=== PATIENT | female | born 1990 | race Caucasian/White ===

== ENCOUNTER 2019-05-19 22:34 | Emergency (ER) | payer MEDICAID, SELFPAY ==
[2019-05-19 22:35] VITALS: BP 124/78; PULSE 66; RESP 18; TEMP 36.3; O2SAT 97; BMI 36.0
--- NOTE | 2019-05-19 22:57 | ED.DCSUM_ITS ---
- ER Visit Summary Date of Service: 05/19/19 Chief Complaint: Sore throat and left ear pain History of Present Illness: The patient is a 29 F who presents with a sore throat and left ear pain that has been getting worse over the past 2 weeks. Patient describes the pain as sharp. Patient is a pain is over the lower tonsillar areas bilaterally. Patient states the pain radiates to her left ear. Patient states the pain is worse with swallowing. Patient admits to fever of 100.4. Patient admits to some nausea but denies any vomiting. Patient denies any cough. Patient denies any chest pain or shortness of breath. Physical Examination: Vital signs are stable. Patient is afebrile. Patient is in no acute distress. The left tympanic membrane is mildly erythematous. The right tympanic membrane is clear. Neck is supple. Trachea is midline. There is no JVD noted. Oral mucosa is pink and moist. Oropharynx is erythematous. There is a slight exudate noted on the tonsils bilaterally. Heart was regular rate and rhythm. Lungs are clear and equal bilaterally. Cranial nerves II through XII are intact. There are no focal motor or sensory deficits noted. Emergency Department Course and Treatment: Patient was given her first dose of Zithromax here. Patient was given a prescription for Zithromax. Patient is allergic to penicillins and clindamycin. Patient was instructed to continue plenty of fluids. Patient was instructed to follow-up with her primary care physician in 5 to 7 days. Patient understood and was agreeable with the plan. All questions were answered. Disposition: Discharge home Impression: 1. Left otitis media 2. Pharyngitis This note was generated with [employer] dictation software. It may contain incorrect words, spelling, and punctuation that were not noted in review of the chart prior to signing ED Disposition - Plan for ED Patient: Disposition: Home or Assisted Living Diagnosis: Left otitis media, Pharyngitis Instructions: OTITIS MEDIA, Abx Tx (Adult), PHARYNGITIS, Strep (Presumed) Prescriptions: Azithromycin [Zithromax] 250 mg PO DAILY #4 tab Prescription Printed Referrals: [facility] Doctor,Out of [Primary Care Provider] - 5-7 Days
[2019-05-19] MEDS: Azithromycin 250 MG Tablet 500 MG PO (23:08)
[2019-05-19 23:28] VITALS: RESP 18
== END 2019-05-19 23:28 | disposition home or self-care (01) ==
LOC: ED 23:06
PROVIDERS: Emergency Provider Emergency Medicine; Family Provider Internal Medicine; PCP Internal Medicine
DX: H66.92 Otitis media, unspecified, left ear (principal); J02.9 Acute pharyngitis, unspecified; M79.7 Fibromyalgia
CPT/HCPCS: 99283

== ENCOUNTER 2019-09-05 14:13 | Emergency (ER) | payer MEDICAID, SELFPAY ==
[2019-09-05 14:13] VITALS: BP 123/99; PULSE 87; RESP 16; TEMP 36.4; O2SAT 97; BMI 33.6
--- NOTE | 2019-09-05 15:14 | ED.VISSUMM ---
- ER Visit Summary Date of Service: 09/05/19 Chief Complaint: Dizziness History of Present Illness: The patient is a 29 F who presents with dizziness that began today. Patient states the dizziness feels like the room is spinning and she is off balance. Patient states this has been waxing and waning for the past couple hours. Patient states it is worse with standing. Patient states she had one episode of vomiting. Patient states she feels shaky. Patient admits to some pressure in her ears but denies any tinnitus or hearing changes. Patient denies any visual changes. Patient denies any paresthesias or weakness. Patient denies any headaches. Physical Examination: Vital signs are stable. Patient is afebrile. Patient is in no acute distress. Pupils are equal, round, and reactive to light bilaterally. Extraocular muscles are intact. There is nystagmus with lateral gaze. Tympanic membranes are clear bilaterally. Oral mucosa is pink and moist. Oropharynx is clear. Neck is supple. Trachea is midline. There is no JVD noted. Heart was regular rate and rhythm. Lungs are clear and equal bilaterally. Abdomen is soft. Bowel sounds are normal. There is no tenderness. Cranial nerves II through XII are intact. There are no focal motor or sensory deficits noted. Extremities are intact. There is no calf tenderness or edema. Test Results: CBC and basic metabolic profile within normal limits. hCG was negative. Emergency Department Course and Treatment: Patient was given a dose of meclizine and prednisone here. Patient still had dizziness and nausea after this. Patient was given a dose of Valium and Zofran. Patient states her dizziness and nausea has improved after this but is still present. Patient was given prescriptions for Valium and Zofran. Patient was instructed to get plenty of rest and drink plenty of fluids. Patient was instructed to follow-up with her primary care physician in 3 to 5 days. Patient understood and was agreeable with the plan. All questions were answered. Disposition: Discharge home Impression: 1. Vertigo This note was generated with [employer] dictation software. It may contain incorrect words, spelling, and punctuation that were not noted in review of the chart prior to signing ED Disposition - Plan for ED Patient: Disposition: Home or Assisted Living Diagnosis: Vertigo Instructions: VERTIGO, Unspecified Prescriptions: Diazepam [Valium] 2 mg PO TID PRN PRN #10 tab PRN Reason: Vertigo Prescription Printed Ondansetron [Zofran Odt] 4 mg PO Q8H PRN PRN #10 tab PRN Reason: Nausea Prescription Printed Referrals: Joselito Daugherty MD [Primary Care Provider] - 3-5 Days
[2019-09-05] MEDS: 0.9% Normal Saline 1,000 ML 1000 ML IV (15:27)
[2019-09-05] MEDS: Meclizine HCl 25 MG Tablet PO (15:28)
[2019-09-05] MEDS: predniSONE 20 MG Tablet 40 MG PO (15:28)
[2019-09-05 15:37] LABS: Absolute Lymphocyte Count 3.01 X10^3/uL (0.83-4.51); Absolute Neutrophil Count 6.2 X10^3/uL (2.0-7.7); Basophil# 0.03 X10^3/uL; Basophil% 0.3 % (0-1); Eosinophil# 0.25 X10^3/uL; Eosinophils% 2.4 % (0-5); Hematocrit 44.7 % (37-47); Hemoglobin 14.9 g/dL (12.0-15.0); Lymphocyte # 3.01 X10^3/ul (4.0); Lymphocyte % 29.4 % (19-41); Mean Corp Hgb Conc 33.3 g/dL (32-36); Mean Corpuscular Hgb 31.4 pg (27.0-32.0); Mean Corpuscular Volume 94.3 fL (81-99); Mean Platelet Vol. 9.4 fl (6.2-12.0); Monocyte# 0.78 X10^3/uL; Monocyte% 7.6 % (0-10); NRBC Flagged by Analyzer 0 % (0-5); Neutrophil # 6.16 X10^3/uL (2.7-7.7); Neutrophil % 60.1 % (47-70); Platelet Count 334 K/mm3 (150-450); RBC Distribution Width CV 12.9 % (11.6-14.6); RBC Distribution Width SD 44.7 fl (35.1-43.9); Red Blood Count 4.74 M/mm3 (4.2-5.4); White Blood Count 10.3 K/mm3 (4.4-11.0)
[2019-09-05 15:52] LABS: Anion Gap 6 (5-15); BUN 9 mg/dL (7-18); BUN/Creat Ratio 10.4 RATIO (10-20); Calcium,Total 9.2 mg/dL (8.5-10.1); Chloride 105 mmol/L (98-107); Creatinine, Serum 0.87 mg/dL (0.55-1.02); EST Glomerular Filtration Rate 81 mL/min (>60); Est Glom Filt Rate - Afr Amer 98 mL/min (>60); Estimated Creatinine Clearance 80.91 ml/min; Glucose 103 mg/dL (74-106); Potassium 3.6 mmol/L (3.5-5.1); Sodium Level 140 mmol/L (136-145)
[2019-09-05 16:00] LABS: Internal QC Validated? YES +Cl - CLEAR BKGD; Pregnancy, Serum, hCG Quali. NEGATIVE Negative
[2019-09-05] MEDS: Ondansetron 4 MG/2 ML Vial IV (16:40)
[2019-09-05] MEDS: diazePAM 5 MG Tablet 2.5 MG PO (16:41)
[2019-09-05 17:14] VITALS: RESP 14
[2019-09-05 18:46] VITALS: RESP 16
== END 2019-09-05 18:46 | disposition home or self-care (01) ==
PROVIDERS: Emergency Provider Emergency Medicine; Family Provider Internal Medicine; PCP Internal Medicine
DX: R42 Dizziness and giddiness (principal); R11.2 Nausea with vomiting, unspecified; R06.00 Dyspnea, unspecified; M54.9 Dorsalgia, unspecified; G89.29 Other chronic pain; E03.9 Hypothyroidism, unspecified
CPT/HCPCS: 80048; 84703; 85025; 96361; 96374; 99283; J7030; A4216; J2405

== ENCOUNTER 2020-12-10 04:32 | Emergency (ER) | payer MEDICAID, SELFPAY ==
[2020-12-10 04:32] VITALS: BP 106/80; PULSE 94; RESP 23; TEMP 36.3; O2SAT 97; BMI 38.6
[2020-12-10 04:36] VITALS: BP 106/80; PULSE 94; RESP 19; TEMP 36.3; O2SAT 97
--- NOTE | 2020-12-10 04:52 | ED.RN ---
RN CALLED FOR EKG, NO OLD EKGS IN MUSE
--- NOTE | 2020-12-10 05:00 | RAD_ITS ---
STUDY: X-RAY CHEST REASON FOR EXAM: Female, 30 years old. Worsening chest pain and pressure during the past month. Shortness of breath. TECHNIQUE: AP portable chest. COMPARISON: None. FINDINGS: The lungs are clear and expanded. There is no demonstrated pleural abnormality. Normal size heart. Normal mediastinum and liban. Normal visualized pulmonary arteries. Normal visualized aortic arch and descending thoracic aorta. Normal visualized thoracic spine. Normal visualized ribs, clavicles, and shoulders. There is no demonstrated abnormality of the visualized soft tissue structures of the upper abdomen. RAD/Chest 1 View (Portable) IMPRESSION: Normal x-ray examination of the chest. Electronically Signed: Raza Cancino MD at 5:27 EST , Service support ,
--- NOTE | 2020-12-10 05:00 | EKG12_ITS ---
Test Reason : CP/SOB Blood Pressure : / mmHG Vent. Rate : 092 BPM Atrial Rate : 092 BPM P-R Int : 132 ms QRS Dur : 072 ms QT Int : 364 ms P-R-T Axes : 061 078 034 degrees QTc Int : 450 ms Normal sinus rhythm Normal ECG Confirmed by GUSTAVO LEZAMA, PHILIP ([id number]), production editor PARAS DEVRIES ([id number]) on 12/11/2020 11:14:34 AM Referred By: BB Confirmed By:PHILIP CHEN MD
--- NOTE | 2020-12-10 05:02 | ED.DCSUM_ITS ---
History of Present Illness Chief Complaint: Chest Pain Informant: Patient Onset: Weeks - multiple Activity at onset: Unknown Timing: Continuous - for at least a week Quality: Pressure Location: Substernal - sometimes radiating into mid-upper back; no other radiation Current Severity: Moderate Maximum Severity: Moderate Worsened By: Breathing, - - lying supine Relieved By: - - sitting up Associated Symptoms: Dyspnea, Cough. Negative for: Nausea, Vomiting, Diaphoresis, Fever, Lightheadedness, Acid Reflux, Palpitations Narrative: Patient presents saying that she has been having symptoms of a slight asthma exacerbation for the past several weeks or month. She has been having chest pressure off and on during this, and it has been constant for at least the past week. It seems worse when she lies down, and she noticed a sore throat for the last day or 2, and some discomfort in her upper chest with eating sometimes. She went to urgent care earlier this past day and they performed a Covid swab, which she has not had nor known contact with anybody with that that she knows of, told her that her throat looked normal, and they gave her a nebulizer machine. They were going to give her a prescription for vials of albuterol, but at the pharmacy they had a prescription for an inhaler only and she already has that. She has been using the inhaler here and there but not every day and not this past day, and it has not helped her chest pressure although it has helped her whistling. No fevers or chills or runny nose or myalgias. No GI symptoms. - Past Medical History (1) Asthma Status: Chronic (2) Dominick's thyroiditis Status: Chronic (3) Fibromyalgia Status: Chronic Past Medical History - Allergies and Home Meds Allergies/Adverse Reactions: Allergies amoxicillin Allergy (Verified 09/05/19 14:15) Hives clindamycin Allergy (Verified 09/05/19 14:15) Hives Penicillins [PCN] Allergy (Verified 09/05/19 14:15) Hives trazodone Allergy (Verified 09/05/19 14:15) Angioedema Primary Care Physician: Joselito Daugherty MD [Primary Care Provider] - Smoking Status: Never smoker Review of Systems General: Denies: Chills, Fever, Sweats Eyes: Denies: Visual changes - bilaterally, Diplopia ENT: Denies: Bilateral ear pain, Rhinorrhea, Sore throat Cardiovascular: Reports: Chest pain. Denies: Palpitations, Heart racing Respiratory: Reports: Dyspnea, Cough. Denies: Sputum, Dyspnea on exertion, Orthopnea Gastrointestinal: Denies: Abdominal pain, Nausea, Vomiting, Diarrhea, Melena, Hematochezia Genitourinary: Denies: Dysuria, Hematuria, Frequency Musculoskeletal: Reports: Back pain. Denies: Myalgias, Neck pain, Swelling, Extremity Pain Skin: Denies: Rash, Wounds Neurological: Denies: Headache, Weakness, Numbness Physical Exam Vital Signs/Narrative: Vital Signs Temp Pulse Resp BP Pulse Ox 12/10/20 04:36 97.4 F L 94 19 H 106/80 97 12/10/20 04:32 97.4 F L 94 23 H 106/80 97 Inital Vital Signs reviewed: Yes General: Well nourished, Well developed, Obese, No Acute Distress - Well- appearing Head: Normocephalic, Atraumatic Eyes: Perrl, EOMI ENT: Moist mucous membranes, No rhinorrhea Neck: Supple, Nontender Cardiovascular: Regular rate, Regular rhythm, No murmurs. Negative for: Tachycardia Respiratory: No distress - Speaking in full sentences, conversive without any distress, CTA bilaterally, Chest tenderness - Reproducing the patient's pain midsternum, - - No splinting on deep inspiration Abdomen: Soft, Nontender, Nondistended, Normal bowel sounds Back: Nontender, Normal Inspection Extremities: Nontender, No edema. Negative for: Calf Tenderness Skin: Normal color, No rash, No Trauma Neurological: Alert, Oriented x3, Cranial nerves II-XII grossly intact, Normal Strength, Normal Sensation Psychological: Normal Mood, - - Somewhat anxious Diagnostic/Tx/Re-eval Chest X-Ray - ED: 1 View, Read by ED Physician, Normal, Heart, Lungs, Mediastinum, Bony Structures, No Acute Disease Clinical Impression(s) from Imaging Studies Chest X-Ray 12/10/20 05:00 IMPRESSION: Normal x-ray examination of the chest. Electronically Signed: Raza Cancino MD at 5:27 EST , Service support , - Rhythm Strip Rhythm Strip: Sinus Rhythm Rate: 92 Ectopy: None - EKG Initial EKG Interpretation: Sinus Rhythm, No Acute Injury Pattern - Normal EKG Prior: No Prior Treatment: GI Cocktail - And albuterol treatment without significant improvement FRANCIE Risk: No Positive FRANCIE Elements Score: 0 - Medical Decision Making EKG is normal, chest x-ray is normal as well. I do not think she needs troponin, blood work, further work-up emergently. We did try an albuterol treatment and a GI cocktail, neither 1 really seem to help her pressure but the GI cocktail did resolve her throat discomfort that was mild. Patient is reassured, we can reproduce her discomfort with palpation of her sternum and parasternal areas at a certain mid sternal level, and as I discussed with her it is certainly possible this is chest wall pain related to her fibromyalgia. We will give her a dose of Toradol prior to discharge and instructions on costochondritis, certainly other intrathoracic etiologies are in the differential such as esophageal spasm, celiac disease which we discussed, and I do not think she needs to be worked up for pulmonary embolism or other cardiac disease at this time given her normal EKG. Close outpatient follow-up advised. ED Disposition - Plan for ED Patient: Disposition: Home or Assisted Living Diagnosis: Chest pain, unspecified Instructions: ED Chest Wall Pain, Costochondritis Prescriptions: Albuterol Aerosols [Ventolin Aerosols] 2.5 mg INHALATION Q4H PRN #25 vial Transmission Status: Pending to [id number] Referrals: Joselito Daugherty MD [Primary Care Provider] - 3-5 Days if not improving
[2020-12-10] MEDS: Albuterol 2.5 MG/3 ML VIAL.NEB. INHALATION (05:04)
[2020-12-10 05:05] VITALS: PULSE 61; RESP 10
[2020-12-10] MEDS: Mag Hydrox/Al Hydrox/Simeth 30 ML UDC PO (05:47)
[2020-12-10] MEDS: Ketorolac 30 MG/ML Syringe IV (06:11)
[2020-12-10 06:30] VITALS: BP 141/97; PULSE 73; RESP 18; O2SAT 99
== END 2020-12-10 06:31 | disposition home or self-care (01) ==
PROVIDERS: Emergency Provider Emergency Medicine; PCP Internal Medicine
DX: R07.89 Other chest pain (principal); J45.909 Unspecified asthma, uncomplicated; M79.7 Fibromyalgia; E06.3 Autoimmune thyroiditis; E66.9 Obesity, unspecified; Z79.51 Long term (current) use of inhaled steroids; Z79.899 Other long term (current) drug therapy
CPT/HCPCS: 71045; 93005; 94640; 96374; 99283; A4216

== ENCOUNTER 2021-08-09 18:52 | Emergency (ER) | payer MEDICAID, SELFPAY ==
[2021-08-09 18:53] VITALS: BP 153/98; PULSE 93; RESP 16; TEMP 36.9; O2SAT 98; BMI 34.3
[2021-08-09 20:09] LABS: Absolute Lymphocyte Count 3.12 X10^3/uL (0.83-4.51); Absolute Neutrophil Count 7.4 X10^3/uL (2.0-7.7); Basophil# 0.05 X10^3/uL; Basophil% 0.4 % (0-1); Eosinophil# 0.27 X10^3/uL; Eosinophils% 2.3 % (0-5); Hemoglobin 15.6 g/dL (12.0-15.0); Lymphocyte # 3.12 X10^3/ul (0.83-4.51); Lymphocyte % 26.9 % (19-41); Mean Corp Hgb Conc 32.5 g/dL (32-36); Mean Corpuscular Hgb 30.7 pg (27.0-32.0); Mean Corpuscular Volume 94.5 fL (81-99); Mean Platelet Vol. 9.6 fl (6.2-12.0); Monocyte# 0.75 X10^3/uL; Monocyte% 6.5 % (0-10); NRBC Flagged by Analyzer 0 % (0-5); Neutrophil # 7.39 X10^3/uL (2.7-7.7); Neutrophil % 63.6 % (47-70); Platelet Count 343 K/mm3 (150-450); RBC Distribution Width CV 12.6 % (11.6-14.6); RBC Distribution Width SD 43.9 fl (35.1-43.9); Red Blood Count 5.08 M/mm3 (4.2-5.4); White Blood Count 11.6 K/mm3 (4.4-11.0)
[2021-08-09 20:16] VITALS: PULSE 89; RESP 16; O2SAT 97
[2021-08-09 20:17] LABS: Internal QC Validated? YES +Cl - CLEAR BKGD
[2021-08-09 20:18] LABS: Pregnancy, Serum, hCG Quali. NEGATIVE Negative
[2021-08-09 20:21] LABS: Anion Gap 6 (5-15); BUN 7 mg/dL (7-18); BUN/Creat Ratio 8.9 RATIO (10-20); Calcium,Total 8.9 mg/dL (8.5-10.1); Chloride 106 mmol/L (98-107); Creatinine, Serum 0.78 mg/dL (0.55-1.02); EST Glomerular Filtration Rate 90 mL/min (>60); Est Glom Filt Rate - Afr Amer 108 mL/min (>60); Estimated Creatinine Clearance 88.59 ml/min; Glucose 122 mg/dL (74-106); Potassium 4.4 mmol/L (3.5-5.1); Sodium Level 139 mmol/L (136-145)
[2021-08-09 21:04] LABS: Mucous, Urine 0 SEEN /hpf (<or=2+); Red Blood Cells-Urine 0 SEEN /hpf (0-5); Squamous Epithelial Cells - UA 0 SEEN /hpf (5-10); White Blood Cells 0 SEEN /hpf (0-5)
[2021-08-09 21:10] LABS: Glucose, Dipstick Normal (Normal); Ketone-Dipstick Negative (Negative); Leukocyte Esterase-Dipstick Negative /ul (Negative); Nitrite-Dipstick Negative (Negative); Occult Blood-Urine Negative /ul (Negative); Protein-Dipstick Negative (Negative); Urine Bilirubin Dipstick Negative (Negative); Urine Urobilinogen Normal (Normal)
[2021-08-09 21:32] LABS: Color, Urine Yellow (Yellow); Urine Clarity Sl Cldy (Clear)
[2021-08-09 21:43] LABS: Bacteria RARE /hpf (None Seen); Transitional Epithelial - Ur 0-5 SEEN /hpf (0-5)
--- NOTE | 2021-08-09 21:45 | RAD_ITS ---
INDICATION: Left-sided abdominal pain EXAMINATION/TECHNIQUE: X-RAY - XR Abdomen Series W/ Chest 1 View COMPARISON: 12/10/2019 FINDINGS: --Chest: LINES/DEVICES: None. LUNGS: No consolidation, edema or effusion. No pneumothorax. MEDIASTINUM AND CARDIOVASCULAR STRUCTURES: Cardiac silhouette not enlarged. Central airways and mediastinal contour are unremarkable. BONES AND SOFT TISSUES: No acute findings. --Abdomen: BOWEL GAS PATTERN: Non-obstructive. No bowel or stomach distention. Small amount retained stool in colon. FREE AIR: None visualized. ORGANOMEGALY: Not seen. CALCIFICATIONS: No abnormal calcifications observed. BONES AND SOFT TISSUES: No acute findings. RAD/Acute Abdomen Inc Chest IMPRESSION: No acute abnormalities. Electronically Signed: Frantz Jackson MD at 22:32 EDT Tel , Service support ,
--- NOTE | 2021-08-09 21:57 | EDS_ITS ---
HPI HPI - GI History of Present Illness Chief Complaint: Abd Pain Informant: patient Abdominal Pain/Flank Pain Onset: Weeks Context: Sudden Onset Timing: Continuous Quality: Sharp Location: - (Left upper umbilicus) Current Severity: Mild Maximum Severity: Severe Worsened by: Nothing Relieved by: Nothing Nausea/Vomiting/Emesis GI Symptom: Negative for Nausea and Vomiting Diarrhea/Melena/Hematochezia GI Symptom: Negative for Diarrhea, Melena and Hematochezia Associated Symptoms Associated Symptoms: Negative for Dysuria, Frequency and Hematuria Narrative Narrative: Patient is a 31-year-old woman who was sent from urgent care because of abdominal pain for the past 2 weeks. She denies history of abdominal surgery. Her last menses was less than a month ago. She states she reports no symptoms of . She is not sexually active. She is not been compliant with her levothyroxine. She does report weight gain. She does feel slight fatigue. She denies headache, visual, ocular auditory symptoms. Denies cardiac respiratory symptoms. She denies nausea, vomiting or diarrhea. She denies dysuria, frequency, urgency or hematuria. She denies history of inflammatory bowel disorder. There is no family history of inflammatory bowel disorder. She denies blood or mucus in her stool. She denies history of renal ureterolithiasis. There is no history of trauma. Prior similar symptoms: No Recent Illness/Hospitalization: No PFSH PFSH Home Medications albuterol sulfate 2 puff IH Q4H PRN PRN 12/10/20 [History Last Taken Unknown] albuterol sulfate 2.5 mg INHALATION Q4H PRN #25 vial 12/10/20 [Rx Last Taken Unknown] levothyroxine 200 mcg PO DAILY 12/10/20 [History Last Taken Unknown] tizanidine 4 mg PO QHS PRN 12/10/20 [History Last Taken Unknown] fluticasone propionate [Flovent HFA] 1 puff INHALATION BID 08/09/21 [History L ast Taken Unknown] Allergy/AdvReac Type Severity Reaction Status Date / Time amoxicillin Allergy Hives Verified 08/09/21 18:53 clindamycin Allergy Hives Verified 08/09/21 18:53 Penicillins [PCN] Allergy Hives Verified 08/09/21 18:53 trazodone Allergy Angioedema Verified 08/09/21 18:53 Surgical History H/O total thyroidectomy Social History (Updated 08/09/21 @ 21:[address] Venkat Pearl MD) household members: none Smoking Status: Never smoker alcohol intake: current alcohol intake frequency: holidays/special occasions only substance use type: does not use ROS ROS ED Constitutional Constitutional ED: Denies chills, fever(s), subjective, sweats or weight loss ENT ENT ED: Denies ear pain or rhinorrhea Cardiovascular Cardiovascular: Denies chest pain or palpitations Respiratory/Chest Respiratory/Chest: Denies cough, dyspnea or dyspnea on exertion Gastrointestinal Gastrointestinal: Reports abdominal pain; Denies constipation, diarrhea, melena, nausea or vomiting Genitourinary Genitourinary ED: Denies dysuria, hematuria or urinary frequency Musculoskeletal Musculoskeletal: Denies arthralgias, back pain, myalgias or neck pain Integumentary Denies rash Neurologic Neurologic: Denies headache(s) or weakness Hematologic/Lymphatic Hematologic/Lymphatic: Denies easy bleeding or easy bruising EXAM Physical Exam Const Vital Signs: 08/09/21 18:53 08/09/21 20:16 08/09/21 22:45 Temperature 98.4 F Temperature Source Temporal Pulse Rate 93 89 Respiratory Rate 16 16 Blood Pressure 153/98 H 115/102 H Blood Pressure Mean 116 106 Pulse Ox 98 97 99 Oxygen Delivery Method Room Air Room Air Room Air Positive well nourished, well developed and obese General Appearance ED: well developed and NAD Nutritional Appearance: obese HEENT Reports moist mucous membranes normocephalic and atraumatic Eyes PERRL and EOMs intact bilaterally General Eye ED: Negative for pale conjunctiva or scleral icterus Neck no lymphadenopathy, supple and no JVD Resp normal respiratory effort and clear to auscultation bilaterally Cardio regular rate, regular rhythm, S1 normal heart sound, S2 normal heart sound and no murmurs GI non-distended; Negative for non-tender Auscultation: normoactive bowel sounds and hypoactive bowel sounds Palpation: soft and tender LUQ; Negative for guarding, rigid, hepatomegaly or splenomegaly Back/Spine no CVA tenderness Lumbar Spine / Lower Back: Negative for lumbar spinal tenderness Extremity full ROM General Extremety ED: Negative for edema or tenderness General Extremity: Negative for edema Neuro CN's II-XII intact bilaterally Sensorium / Orientation: alert, oriented to person, oriented to place and oriented to time Motor Exam: strength 5/5 throughout Psych mental status grossly normal and thought process normal Skin no wounds Lesions: no lesions Rashes: no rashes MDM MDM MDM Narrative Medical decision making narrative: Patient with 2 weeks of constant abdominal pain. Etiology is unknown. May represent abdominal pain of unknown etiology, irritable bowel syndrome, obstipation due to noncompliance with thyroid me dicine. Patient was informed she has to take her levothyroxine. There is stool noted on the abdominal x-ray. Otherwise her work-up was unremarkable. Lab Data Attestation: I reviewed the patient's lab results. Lab results narrative: White count is slightly elevated. There is no shift or bandemia.. Basic metabolic panels marked for glucose of 122. test is negative. Labs: Laboratory Results - last 24 hr 08/09/21 08/09/21 08/09/21 19:43 19:43 19:43 WBC 11.6 H RBC 5.08 Hgb 15.6 H Hct 48.0 H MCV 94.5 MCH 30.7 MCHC 32.5 RDW Std Deviation 43.9 RDW Coeff of Hi 12.6 Plt Count 343 MPV 9.6 Immature Gran % (Auto) 0.300 Neut % (Auto) 63.6 Lymph % (Auto) 26.9 [place] % (Auto) 6.5 Eos % (Auto) 2.3 Baso % (Auto) 0.4 Absolute Neuts (auto) 7.4 Absolute Lymphs (auto) 3.12 Nucleated RBC % 0 Sodium 139 Potassium 4.4 Chloride 106 Carbon Dioxide 27.0 Anion Gap 6 BUN 7 Creatinine 0.78 Estim Creat Clear Calc 88.59 Est GFR (MDRD) Af Amer 108 Est GFR (MDRD) Non-Af 90 BUN/Creatinine Ratio 8.9 L Glucose 122 H Calcium 8.9 TSH Serum , Qual NEGATIVE Urine Color Urine Clarity Urine pH Ur Specific [place] Urine Protein Urine Glucose (UA) Urine Ketones Urine Occult Blood Urine Nitrite Urine Bilirubin Urine Urobilinogen Ur Leukocyte Esterase Urine RBC Urine WBC Ur Squamous Epith Cells Ur Transition Epith Cell Urine Bacteria Urine Mucus 08/09/21 08/09/21 19:43 Unknown WBC RBC Hgb Hct MCV MCH MCHC RDW Std Deviation RDW Coeff of Hi Plt Count MPV Immature Gran % (Auto) Neut % (Auto) Lymph % (Auto) [place] % (Auto) Eos % (Auto) Baso % (Auto) Absolute Neuts (auto) Absolute Lymphs (auto) Nucleated RBC % Sodium Potassium Chloride Carbon Dioxide Anion Gap BUN Creatinine Estim Creat Clear Calc Est GFR (MDRD) Af Amer Est GFR (MDRD) Non-Af BUN/Creatinine Ratio Glucose Calcium TSH 7.96 H Serum , Qual Urine Color Yellow Urine Clarity Sl Cldy Urine pH 8.0 Ur Specific [place] 1.010 Urine Protein Negative Urine Glucose (UA) Normal Urine Ketones Negative Urine Occult Blood Negative Urine Nitrite Negative Urine Bilirubin Negative Urine Urobilinogen Normal Ur Leukocyte Esterase Negative Urine RBC 0 SEEN Urine WBC 0 SEEN Ur Squamous Epith Cells 0 SEEN Ur Transition Epith Cell 0-5 SEEN Urine Bacteria RARE Urine Mucus 0 SEEN Radiography Diagnostic Testing: Radiology Impression Acute Abdomen Series 08/09/21 21:45 IMPRESSION: No acute abnormalities. Electronically Signed: Frantz Jackson MD at 22:32 EDT Tel , Service support , Discharge Plan Triage Chief Complaint: Abd Pain ED Provider: Venkat Pearl Dx/Rx/DC Orders Clinical Impression: Left sided abdominal pain of unknown cause, Hypothyroidism Instructions: ED Abdominal Pain Unkn Cause Fem, ED Hypothyroidism Prescriptions: No Action tizanidine 4 MG tablet 4 mg PO QHS PRN (Reason: Pain 1-10 Or Fever) RF: 0 levothyroxine 200 MCG tablet 200 mcg PO DAILY RF: 0 albuterol sulfate 1 PUFF inhaler 2 puff IH Q4H PRN PRN (Reason: Shortness Of Breath) RF: 0 albuterol sulfate 2.5 MG/3 ML solution for nebulization 2.5 mg INHALATION Q4H PRN Qty: 25 RF: 0 Flovent HFA 220 mcg/actuation HFA aerosol inhaler 1 puff INHALATION BID RF: 0 Primary Care Provider: Joselito Daugherty Referrals: Joselito Daugherty MD [Primary Care Provider] - 1 Week if not improving Activity Restrictions/Additional Instructions: 1. Increase fiber in diet 2. You need to take your thyroid medicine daily. 3. You should follow-up with your doctor in 1 to 2 weeks to have a thyroid test performed. Disposition Disposition: Home, Self Care
[2021-08-09 22:18] LABS: Thyroid Stim Hormone (TSH) 7.96 uIU/mL (0.358-3.74)
[2021-08-09 22:45] VITALS: BP 115/102; O2SAT 99
== END 2021-08-10 00:40 | disposition home or self-care (01) ==
PROVIDERS: Emergency Provider Emergency Medicine; PCP Internal Medicine
DX: R10.9 Unspecified abdominal pain (principal); E03.9 Hypothyroidism, unspecified; E66.9 Obesity, unspecified; Z79.899 Other long term (current) drug therapy; Z79.51 Long term (current) use of inhaled steroids
CPT/HCPCS: 74022; 80048; 81001; 84443; 84703; 85025; 99284; J7030

== ENCOUNTER 2021-09-12 11:24 | Emergency (ER) | payer MEDICAID, SELFPAY ==
[2021-09-12 11:25] VITALS: BP 133/93; PULSE 70; RESP 161; TEMP 36.4; O2SAT 100; BMI 39.3
[2021-09-12 11:36] VITALS: PULSE 76; RESP 18; O2SAT 99
--- NOTE | 2021-09-12 11:36 | EKG12_ITS ---
Test Reason : Blood Pressure : / mmHG Vent. Rate : 069 BPM Atrial Rate : 069 BPM P-R Int : 140 ms QRS Dur : 078 ms QT Int : 394 ms P-R-T Axes : 029 085 063 degrees QTc Int : 422 ms Normal sinus rhythm Kristian-Septal CT, age undetermined, cannot be excluded Confirmed by GUSTAVO LEZAMA, PHILIP ([id number]), video effects editor YULIYA TERRELL ([id number]) on 09/14/2021 8:10:52 AM Referred By: WILLY Confirmed By:PHILIP CHEN MD
--- NOTE | 2021-09-12 11:36 | RAD_ITS ---
STUDY: X-RAY CHEST REASON FOR EXAM: Female, 31 years old. sob TECHNIQUE: PA and lateral views of the chest. COMPARISON: 08/09/2021 FINDINGS: The lungs are clear and expanded. There is no demonstrated pleural abnormality. Normal size heart. Normal mediastinum and liban. Normal visualized pulmonary arteries. Normal visualized aortic arch and descending thoracic aorta. Normal visualized thoracic spine. Normal visualized ribs, clavicles, and shoulders. There is no demonstrated abnormality of the visualized soft tissue structures of the upper abdomen. RAD/Chest PA and Lateral IMPRESSION: Normal x-ray examination of the chest. Electronically Signed: Simone Mann MD at 12:04 EST Tel , Service support ,
--- NOTE | 2021-09-12 11:37 | EDS_ITS ---
HPI History of Present Illness Chief Complaint: Allergic Reaction Informant: patient Onset/Context/Timing Onset: Today Context: Gradual Onset Current Severity: Mild Maximum Severity: Moderate Narrative Narrative: Patient presents secondary to have possible allergic reaction to oxycodone. She was given oxycodone secondary to severe right ear infection. She took her first dose at 348 this morning. An hour later she developed diffuse itching. She states she did not have hives. An hour following this she developed some shortness of breath and chest heaviness. She states symptoms are improving at this time but not back to baseline. She continues to have chest heaviness and feels short of breath especially with any exertion. She denies lip swelling or throat tightness, but does states she feels a slight lump in her throat. She will get this sensation frequently with her hypothyroidism. She had no difficulty speaking, controlling secretions, or swallowing. [facility] Medical History Asthma Fibromyalgia Dominick's thyroiditis Home Medications albuterol sulfate 2 puff IH Q4H PRN PRN 12/10/20 [History Last Taken Unknown] albuterol sulfate 2.5 mg INHALATION Q4H PRN #25 vial 12/10/20 [Rx Last Taken Unknown] levothyroxine 200 mcg PO DAILY 12/10/20 [History Last Taken Unknown] tizanidine 4 mg PO QHS PRN 12/10/20 [History Last Taken Unknown] fluticasone propionate [Flovent HFA] 1 puff INHALATION BID 08/09/21 [History Last Taken Unknown] azithromycin 250 mg tablet See Rx Instructions PO .COMPLEX #6 tab 09/05/21 [Rx Last Taken Unknown] zuilrvaf-uarifx-XI-thonzonm 3.3 mg-3 mg-10 mg-0.5 mg/mL ear drops,susp 4 drp OTIC (EAR) TID #10 ml 09/05/21 [Rx Last Taken Unknown] ondansetron 4 mg disintegrating tablet 4 mg PO Q8H PRN #7 tab 09/05/21 [Rx Last Taken Unknown] Allergy/AdvReac Type Severity Reaction Status Date / Time amoxicillin Allergy Hives Verified 09/12/21 11:27 clindamycin Allergy Hives Verified 09/12/21 11:27 oxycodone Allergy Chest Verified 09/12/21 11:37 tightness Penicillins [PCN] Allergy Hives Verified 09/12/21 11:27 trazodone Allergy Angioedema Verified 09/12/21 11:27 Surgical History H/O total thyroidectomy Social History household members: none Smoking Status: Never smoker alcohol intake: current alcohol intake frequency: holidays/special occasions only substance use type: does not use ROS ROS ED Constitutional Constitutional ED: Denies chills or fever(s) Eyes Eyes: Denies change in vision ENT ENT ED: Denies sore throat Cardiovascular Cardiovascular: Reports chest pain Respiratory/Chest Respiratory/Chest: Reports dyspnea; Denies cough Gastrointestinal Gastrointestinal: Denies abdominal pain, diarrhea, nausea or vomiting Genitourinary Genitourinary ED: Denies dysuria Musculoskeletal Musculoskeletal: Denies back pain Integumentary Denies rash Neurologic Neurologic: Denies headache(s) Allergic/Immunologic Allergic/Immunologic ED: Denies urticaria EXAM Physical Exam Const Vital Signs: 09/12/21 11:25 09/12/21 11:36 09/12/21 11:45 Temperature 97.6 F L Temperature Source Temporal Pulse Rate 70 76 Respiratory Rate 161 H 18 Respiratory Effort Normal Blood Pressure 133/93 H Blood Pressure Mean 106 Pulse Ox 100 99 Oxygen Delivery Method Room Air Room Air Positive well nourished and well developed General Appearance ED: well developed HEENT Reports moist mucous membranes HEENT Narrative: Posterior pharynx examination normal. Eyes PERRL and EOMs intact bilaterally Neck no lymphadenopathy and supple Chest Wall inspection of chest normal and palpation of chest normal Resp normal respiratory effort and clear to auscultation bilaterally Cardio regular rate and regular rhythm GI normal to inspection, nondistended, normoactive bowel sounds and non-tender Palpation: soft Extremity normal to inspection Neuro oriented x3 Sensorium / Orientation: alert Psych mental status grossly normal Skin no rashes or lesions noted MDM MDM MDM Narrative Medical decision making narrative: Patient was placed on digital media coordinator. EKG, chest x-ray obtained. Patient given p.o. Benadryl, prednisone, Pepcid. Radiography Chest X-Ray - ED: 2 View, Read by ED Physician, Normal, Heart, Lungs and Mediastinum Diagnostic Testing: Clinical Impression(s) from Imaging Studies Chest X-Ray 09/12/21 11:36 IMPRESSION: Normal x-ray examination of the chest. Electronically Signed: Simone Mann MD at 12:04 EST Tel , Service support , EKG Initial EKG: Attestation: I personally reviewed and interpreted this EKG as follows: Interpretation: Sinus Rhythm (Sinus at 69 with no acute ischemia.) Treatment and Re-Evaluation Comments:: On repeat evaluation patient states that she still feels some heaviness in her chest. Vital signs are normal. EKG and chest x-ray are unremarkable. Half-life of the medication is 4 hours. She presents here approximately 8 hours after the initial ingestion. I advised her that I believe she did have a reaction to the medication but then that has increased her anxiety. She will continue to monitor her symptoms and return instructions provided. She is comfortable with this plan and is agreeable with discharge Discharge Plan Triage Chief Complaint: Allergic Reaction ED Provider: Ayde Coffman Dx/Rx/DC Orders Clinical Impression: Allergic drug reaction Instructions: ED ADVERSE DRUG REACTION Allergic Prescriptions: No Action Cortisporin-TC 3.3-3-10-0.5 mg/mL drops,suspension 4 drp otic (ear) TID Qty: 10 RF: 0 azithromycin [Zithromax Z-Jluis] 250 mg tablet See Rx Instructions PO .COMPLEX Qty: 6 RF: 0 ondansetron 4 mg tablet,disintegrating 4 mg PO Q8H PRN (Reason: nausea and vomiting) Qty: 7 RF: 0 tizanidine 4 MG tablet 4 mg PO QHS PRN (Reason: Pain 1-10 Or Fever) RF: 0 levothyroxine 200 MCG tablet 200 mcg PO DAILY RF: 0 albuterol sulfate 1 PUFF inhaler 2 puff IH Q4H PRN PRN (Reason: Shortness Of Breath) RF: 0 albuterol sulfate 2.5 MG/3 ML solution for nebulization 2.5 mg INHALATION Q4H PRN Qty: 25 RF: 0 Flovent HFA 220 mcg/actuation HFA aerosol inhaler 1 puff INHALATION BID RF: 0 Primary Care Provider: Amalia,Joselito Referrals: Joselito Daugherty MD [Primary Care Provider] - As Needed Disposition Disposition: Home, Self Care
[2021-09-12] MEDS: Famotidine 20 MG Tablet 40 MG PO (11:43)
[2021-09-12] MEDS: DiphenhydrAMINE 25 MG Capsule 50 MG PO (11:43)
[2021-09-12] MEDS: predniSONE 20 MG Tablet 60 MG PO (11:43)
[2021-09-12 13:27] VITALS: BP 137/79; PULSE 71; RESP 18; O2SAT 96
== END 2021-09-12 13:28 | disposition home or self-care (01) ==
PROVIDERS: Emergency Provider Emergency Medicine; PCP Internal Medicine
DX: L29.9 Pruritus, unspecified (principal); R06.02 Shortness of breath; T40.2X5A Adverse effect of other opioids, initial encounter; J45.909 Unspecified asthma, uncomplicated; M79.7 Fibromyalgia; E06.3 Autoimmune thyroiditis; Z79.51 Long term (current) use of inhaled steroids; Z79.899 Other long term (current) drug therapy
CPT/HCPCS: 71046; 93005; 99283

== ENCOUNTER 2021-11-10 10:22 | Emergency (ER) | payer MEDICAID, SELFPAY ==
[2021-11-10 10:23] VITALS: BP 149/114; PULSE 75; RESP 18; TEMP 36.6; O2SAT 99; BMI 39.1
--- NOTE | 2021-11-10 11:13 | EDS_ITS ---
HPI History of Present Illness Chief Complaint: Fever Narrative Narrative: 31-year-old female presenting with symptoms of COVID-19. She states that she became ill about 11 days ago. She denies fever, chills, body aches. Her and her son both have the same symptoms. She states she was not able to get tested any sooner because all of the local urgent cares were full. She states today she is feeling improved but still has a tickle in her throat. She is no longer having fever or chills or body aches. She is eating and drinking normally although she does admit to a little bit of diarrhea. [facility] Medical History Asthma Fibromyalgia Dominick's thyroiditis Home Medications albuterol sulfate 2 puff IH Q4H PRN PRN 12/10/20 [History Last Taken Unknown] albuterol sulfate 2.5 mg INHALATION Q4H PRN #25 vial 12/10/20 [Rx Last Taken Unknown] levothyroxine 200 mcg PO DAILY 12/10/20 [History Last Taken Unknown] tizanidine 4 mg PO QHS PRN 12/10/20 [History Last Taken Unknown] fluticasone propionate [Flovent HFA] 1 puff INHALATION BID 08/09/21 [History Last Taken Unknown] azithromycin 250 mg tablet See Rx Instructions PO .COMPLEX #6 tab 09/05/21 [Rx Last Taken Unknown] nnvgixba-qvakrz-QG-thonzonm 3.3 mg-3 mg-10 mg-0.5 mg/mL ear drops,susp 4 drp OTIC (EAR) TID #10 ml 09/05/21 [Rx Last Taken Unknown] ondansetron 4 mg disintegrating tablet 4 mg PO Q8H PRN #7 tab 09/05/21 [Rx Last Taken Unknown] Allergy/AdvReac Type Severity Reaction Status Date / Time amoxicillin Allergy Hives Verified 11/10/21 10:26 clindamycin Allergy Hives Verified 11/10/21 10:26 oxycodone Allergy Chest Verified 11/10/21 10:26 tightness Penicillins [PCN] Allergy Hives Verified 11/10/21 10:26 trazodone Allergy Angioedema Verified 11/10/21 10:26 Surgical History H/O total thyroidectomy Social History household members: none Smoking Status: Never smoker alcohol intake: current alcohol intake frequency: holidays/special occasions only substance use type: does not use ROS ROS ED Constitutional Constitutional ED: Reports chills and fever(s) Eyes Eyes: Denies blurry vision or diplopia ENT ENT ED: Reports sore throat; Denies rhinorrhea Cardiovascular Cardiovascular: Denies chest pain or palpitations Respiratory/Chest Respiratory/Chest: Reports cough; Denies dyspnea Gastrointestinal Gastrointestinal: Reports diarrhea; Denies abdominal pain, nausea or vomiting Genitourinary Genitourinary ED: Denies dysuria or hematuria Musculoskeletal Musculoskeletal: Reports myalgias; Denies arthralgias Integumentary Denies Abrasions or rash Neurologic Neurologic: Denies headache(s) or weakness EXAM Physical Exam Const Vital Signs: 11/10/21 10:23 Temperature 98 F Temperature Source Temporal Pulse Rate 75 Respiratory Rate 18 Blood Pressure 149/114 H Blood Pressure Mean 125 Pulse Ox 99 Oxygen Delivery Method Room Air Positive well nourished General Appearance ED: NAD; Negative for pallor HEENT Reports moist mucous membranes Negative for trauma Eyes PERRL and EOMs intact bilaterally Resp normal respiratory effort and clear to auscultation bilaterally Cardio regular rate and regular rhythm GI normal to inspection, nondistended, normoactive bowel sounds Neuro oriented x3 and CN's II-XII intact bilaterally Sensorium / Orientation: alert Psych mental status grossly normal Skin no rashes or lesions noted and no wounds General Skin Exam: Negative for jaundice or pallor MDM MDM MDM Narrative Medical decision making narrative: 31-year-old female presenting with Covid symptoms. She is on day 11. She is past the timeframe where she could get monoclonal antibodies although she would have qualified. I think she is also past the time when she can get a rapid Covid test as well. Patient seems to be clinically much improved from her initial illness and her vital signs are stable. She has a pulse of 75, respirate 18, temperature 98 Fahrenheit, O2 sats 99%. Her biggest complaint is that she is a tickle in her throat. I did offer to send out a PCR Covid since the patient is doing well just so she would know clinically if she had COVID-19 but she would be past the time of quarantine by the time this would return. She states that she does not want a Covid test now. She had questions about getting a Covid vaccine and I referred her to her primary care physician. Patient will be discharged home in stable condition. Impression: 1. COVID-19 Discharge Plan Triage Chief Complaint: Fever ED Provider: Senthil Chapman Dx/Rx/DC Orders Clinical Impression: COVID-19 determined by clinical diagnostic criteria Instructions: Coronavirus Disease 2019 (COVID-19): Caring for Yourself or Others Prescriptions: No Action Cortisporin-TC 3.3-3-10-0.5 mg/mL drops,suspension 4 drp otic (ear) TID Qty: 10 RF: 0 azithromycin [Zithromax Z-Jluis] 250 mg tablet See Rx Instructions PO .COMPLEX Qty: 6 RF: 0 ondansetron 4 mg tablet,disintegrating 4 mg PO Q8H PRN (Reason: nausea and vomiting) Qty: 7 RF: 0 tizanidine 4 MG tablet 4 mg PO QHS PRN (Reason: Pain 1-10 Or Fever) RF: 0 levothyroxine 200 MCG tablet 200 mcg PO DAILY RF: 0 albuterol sulfate 1 PUFF inhaler 2 puff IH Q4H PRN PRN (Reason: Shortness Of Breath) RF: 0 albuterol sulfate 2.5 MG/3 ML solution for nebulization 2.5 mg INHALATION Q4H PRN Qty: 25 RF: 0 Flovent HFA 220 mcg/actuation HFA aerosol inhaler 1 puff INHALATION BID RF: 0 Primary Care Provider: Joselito Daugherty Referrals: Joselito Daugherty MD [Primary Care Provider] - Disposition Disposition: Home, Self Care
[2021-11-10 12:09] VITALS: PULSE 78; RESP 16; O2SAT 97
== END 2021-11-10 12:12 | disposition home or self-care (01) ==
LOC: ED 11:19
PROVIDERS: Emergency Provider Student in an Organized Health Care Education/Training Program; PCP Internal Medicine; Visit Provider Student in an Organized Health Care Education/Training Program
DX: U07.1 COVID-19 (principal); J45.909 Unspecified asthma, uncomplicated; M79.7 Fibromyalgia; E06.3 Autoimmune thyroiditis; Z79.899 Other long term (current) drug therapy; Z79.890 Hormone replacement therapy; Z79.51 Long term (current) use of inhaled steroids
CPT/HCPCS: 99282

== ENCOUNTER 2022-01-10 15:44 | Emergency (ER) | payer MEDICAID, SELFPAY ==
[2022-01-10 15:46] VITALS: BP 91/56; PULSE 100; RESP 16; TEMP 36.2; O2SAT 100; BMI 37.8
--- NOTE | 2022-01-10 16:02 | EKG12_ITS ---
Test Reason : ABDOMINAL PAIN Blood Pressure : / mmHG Vent. Rate : 088 BPM Atrial Rate : 088 BPM P-R Int : 130 ms QRS Dur : 076 ms QT Int : 344 ms P-R-T Axes : 053 097 045 degrees QTc Int : 416 ms Normal sinus rhythm Normal ECG Confirmed by JACQUELINE LEZAMA, TORI ([id number]), video tape editor YULIYA TERRELL ([id number]) on 01/11/2022 9:58:22 AM Referred By: TL Confirmed By:TORI PHILLIPS MD
--- NOTE | 2022-01-10 16:02 | CT_ITS ---
EXAM: CT CHEST, ABDOMEN AND PELVIS WITH INTRAVENOUS CONTRAST : 1990 CLINICAL INDICATION: chest pain -- post op choley day 5. chest pain, cont abd pain TECHNIQUE: Helically acquired images were obtained of the chest, abdomen and pelvis with intravenous contrast. This CT exam was performed using one or more of the following dose reduction techniques: automated exposure control, adjustment of the mA and/or kV according to patient size, and/or use of iterative reconstruction technique. This report was created using [employer] report [employer] technology. CONTRAST: IV 100mL Isovue-300 COMPARISON: None. FINDINGS: CHEST: LUNGS AND PLEURAL SPACES: Unremarkable. No mass. No consolidation or edema. No pleural effusion or thickening. No pneumothorax. HEART: Unremarkable. Heart size is normal. No pericardial effusion. No significant coronary artery calcifications. MEDIASTINUM: Unremarkable. No mediastinal or hilar adenopathy. Esophagus is unremarkable. No hiatal hernia. THYROID: Unremarkable. No thyroid lesions. ABDOMEN: LIVER: The liver is diffusely decreased in attenuation compatible with fatty infiltration. GALLBLADDER AND BILE DUCTS: There is a trace amount of fluid in the gallbladder fossa which moves is minimal post surgical change. Patient is status post cholecystectomy. No intra- or extrahepatic biliary ductal dilation. PANCREAS: Unremarkable. No focal cystic or solid mass. SPLEEN: Unremarkable. Normal size without focal cystic or solid mass. ADRENALS: Unremarkable. No nodules. KIDNEYS AND URETERS: There are nonobstructing calyceal stones in both kidneys. Normal renal size and position. STOMACH AND BOWEL: Unremarkable. No stomach or bowel distention. No focal inflammatory change. PELVIS: APPENDIX: No evidence of acute appendicitis. BLADDER: Unremarkable. REPRODUCTIVE: Unremarkable as visualized. No mass. CHEST, ABDOMEN and PELVIS: INTRAPERITONEAL SPACE: Unremarkable. No ascites or other fluid collection. No free air. BONES/JOINTS: Unremarkable. No suspicious lytic or blastic abnormality. SOFT TISSUES: Unremarkable. No discrete abdominal or pelvic wall hernia. VASCULATURE: Unremarkable. Aorta is non-dilated. No aortic dissection. No obvious central pulmonary embolism although this study was not performed with the pulmonary embolism protocol. LYMPH NODES: Unremarkable. No enlarged lymph nodes. IMPression: Status post cholecystectomy. There is a trace amount of fluid in the low bladder fossa which may be due to postsurgical change. There are small nonobstructing calyceal stones bilaterally. No other acute abnormalities are identified. Individualized dose optimization techniques were used for this CT. at 1708 Reported and signed by: Kody Quezada MD Electronically Signed: Kody Quezada MD at 17:07 EST , CT/CT Chest, Abd, Pel w/Contrast
--- NOTE | 2022-01-10 16:04 | EX.ED.DYSGE1 ---
HPI History of Present Illness Chief Complaint: Abd Pain Informant: patient Narrative Narrative: Patient sent in here by her surgeon Dr. Encinas for evaluation and rule out. I spoke with him prior to her arrival. Postop day 5 elective cholecystectomy at [facility]. Patient's continued pain not controlled with hydrocodone. Last bowel movement 4 days ago positive flatus. No urinary symptoms. Yesterday had sharp midsternal chest pain and dyspnea. States had symptoms in the office today. Sent in here for cardiac and PE rule out. And requested additional abdomen pelvis due to her persistent pain. She did not take her hydrocodone today, she took a Zofran prior to being seen in the office. States still nauseated. History of thyroidectomy on thyroid medications. She tried taking the Pepcid yesterday. Allergies to oxycodone and states morphine causes hives. 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 She states fentanyl has not caused reactions in the past. Prior similar symptoms: No PFSH PFSH Medical History (Updated 01/10/22 @ 17:[address] Loi Avendano DO) Asthma Fibromyalgia Dominick's thyroiditis Home Medications levothyroxine 200 mcg PO DAILY 12/10/20 [History Last Taken Unknown] ondansetron 4 mg disintegrating tablet 4 mg PO Q8H PRN #7 tab 09/05/21 [Rx Last Taken Unknown] ibuprofen 600 mg PO 4X/DAY PRN #20 tab 01/10/22 [Rx Last Taken Unknown] Allergy/AdvReac Type Severity Reaction Status Date / Time amoxicillin Allergy Hives Verified 01/10/22 15:48 clindamycin Allergy Hives Verified 01/10/22 15:48 oxycodone Allergy Chest Verified 01/10/22 15:48 tightness Penicillins [PCN] Allergy Hives Verified 01/10/22 15:48 trazodone Allergy Angioedema Verified 01/10/22 15:48 Surgical History (Updated 01/10/22 @ 17:[address] Loi Avendano DO) H/O total thyroidectomy Hx of cholecystectomy Social History household members: none Smoking Status: Never smoker alcohol intake: current alcohol intake frequency: holidays/special occasions only substance use type: does not use ROS ROS ED Constitutional Constitutional ED: Denies chills, fever(s) or sweats Eyes Eyes: Denies change in vision ENT ENT ED: Denies dysphagia or sore throat Cardiovascular Cardiovascular: Reports chest pain; Denies leg edema, palpitations or racing heartbeat Respiratory/Chest Respiratory/Chest: Reports dyspnea; Denies cough or dyspnea on exertion Gastrointestinal Gastrointestinal: Reports abdominal pain and nausea; Denies diarrhea or vomiting Genitourinary Genitourinary ED: Denies dysuria, hematuria or urinary frequency Musculoskeletal Musculoskeletal: Denies back pain, extremity pain or neck pain Integumentary Denies rash or wounds Neurologic Neurologic: Denies headache(s), paresthesias or weakness EXAM Physical Exam Const Vital Signs: 01/10/22 15:46 01/10/22 17:42 Temperature 97.2 F L Temperature Source Temporal Pulse Rate 100 78 Respiratory Rate 16 20 H Blood Pressure 91/56 L 118/87 H Blood Pressure Mean 67 Pulse Ox 100 98 Oxygen Delivery Method Room Air Nontoxic Positive well nourished and well developed General Appearance ED: well developed and NAD HEENT Reports moist mucous membranes normocephalic and atraumatic Eyes PERRL, EOMs intact bilaterally and conjunctivae normal General Eye ED: Yes normal appearance of both eyes Neck no lymphadenopathy and supple General: Negative for tenderness Chest Wall inspection of chest normal Chest: Negative for tenderness Resp normal respiratory effort and normal air movement Effort and Inspection: symmetric chest movement; Negative for respiratory distress Cardio regular rate, regular rhythm and no murmurs Peripheral Pulses: pulses 2+ throughout GI normal to inspection, nondistended, normoactive bowel sounds GI Narrative: Mild generalized tenderness without guarding or rebound, laparoscopic incisions dry and intact with Steri-Strips. Mild dry blood around the areas. Palpation: Negative for guarding or rebound tenderness present Back/Spine no CVA tenderness and no thoracic nor lumbar tenderness Extremity normal to inspection General Extremety ED: Negative for edema or tenderness General Extremity: Negative for edema Neuro oriented x3 and no sensory deficits noted Sensorium / Orientation: awake and alert Skin no rashes or lesions noted and no wounds MDM MDM MDM Narrative Medical decision making narrative: Patient sent in for cardiac and PE rule out with additional's scan into the abdomen pelvis due to postop persistent pain. Labs were drawn which was normal. She given fentanyl Zofran and IV fluids. Normal white count normal lipase, normal liver enzymes. EKG normal sinus rhythm troponin negative. Scans are negative. Postop changes noted. Treated additional fentanyl prior to discharge. I did we discussed with her surgeon Dr. Encinas who okayed the start of NSAIDs. She has no history of stomach ulcers or kidney failure. Ibuprofen sent to the pharmacy. Follow-up with her doctors as an outpatient. All questions were answered. Heart score is a 1. Lab Data Attestation: I reviewed the patient's lab results. Labs: Laboratory Results - last 24 hr 01/10/22 01/10/22 01/10/22 16:10 16:10 16:10 WBC 10.8 RBC 5.12 Hgb 16.1 H Hct 47.2 H MCV 92.2 MCH 31.4 MCHC 34.1 RDW Std Deviation 42.5 RDW Coeff of Hi 12.6 Plt Count 386 MPV 9.5 Immature Gran % (Auto) 0.300 Neut % (Auto) 63.9 Lymph % (Auto) 26.9 [place] % (Auto) 5.8 Eos % (Auto) 2.6 Baso % (Auto) 0.5 Absolute Neuts (auto) 6.9 Absolute Lymphs (auto) 2.89 Nucleated RBC % 0 Sodium 137 Potassium 4.4 Chloride 106 Carbon Dioxide 26.0 Anion Gap 5 BUN 6 L Creatinine 0.78 Estim Creat Clear Calc 88.59 Est GFR (MDRD) Af Amer 108 Est GFR (MDRD) Non-Af 90 BUN/Creatinine Ratio 7.7 L Glucose 114 H Calcium 9.5 Total Bilirubin 0.50 AST 26 ALT 44 Alkaline Phosphatase 84 Troponin I High Sens 27 Total Protein 8.1 Albumin 3.8 Globulin 4.3 H Albumin/Globulin Ratio 0.9 Lipase 55 L Serum , Qual NEGATIVE Radiography Diagnostic Testing: Clinical Impression(s) from Imaging Studies Chest/Abdomen/Pelvis CT 01/10/22 16:02 EKG Initial EKG: Attestation: I personally reviewed and interpreted this EKG as follows: Comments: Sinus rate of 88, no ST or T wave changes. QTc 416. Discharge Plan Triage Chief Complaint: Abd Pain ED Provider: Loi Avendano Dx/Rx/DC Orders Clinical Impression: Post-op pain, S/P cholecystectomy, Chest pain Instructions: Managing Post-Op Pain at Home, ED Chest Pain, Uncertain Cause Prescriptions: New ibuprofen 600 MG tablet 600 mg PO 4X/DAY PRN (Reason: Pain Or Fever) Qty: 20 RF: 0 No Action ondansetron 4 mg tablet,disintegrating 4 mg PO Q8H PRN (Reason: nausea and vomiting) Qty: 7 RF: 0 levothyroxine 200 MCG tablet 200 mcg PO DAILY RF: 0 Primary Care Provider: Joselito Daugherty Referrals: Onur Encinas MD [STAFF PHYSICIAN] - 3-5 Days if not improving Joselito Daugherty MD [Primary Care Provider] - Activity Restrictions/Additional Instructions: Negative CT chest abdomen pelvis for PE. Cardiac work-up negative. Postop changes noted on abdominal CT. No complications. Additional ibuprofen to your regimen. Prescription sent to your pharmacy. Follow-up as an outpatient. Disposition Disposition: Home, Self Care Discharge Date/Time: 01/10/22 18:21
[2022-01-10] MEDS: fentaNYL 100 MCG/2 ML Ampul 50 MCG IV ×2 (16:21→17:26)
[2022-01-10] MEDS: 0.9% Normal Saline 1,000 ML 1000 ML IV (16:21)
[2022-01-10] MEDS: Ondansetron 4 MG/2 ML Vial IV (16:21)
[2022-01-10 16:31] LABS: Absolute Lymphocyte Count 2.89 X10^3/uL (0.83-4.51); Absolute Neutrophil Count 6.9 X10^3/uL (2.0-7.7); Basophil# 0.05 X10^3/uL; Basophil% 0.5 % (0-1); Eosinophil# 0.28 X10^3/uL; Eosinophils% 2.6 % (0-5); Hematocrit 47.2 % (37-47); Hemoglobin 16.1 g/dL (12.0-15.0); Lymphocyte # 2.89 X10^3/ul (0.83-4.51); Lymphocyte % 26.9 % (19-41); Mean Corp Hgb Conc 34.1 g/dL (32-36); Mean Corpuscular Hgb 31.4 pg (27.0-32.0); Mean Corpuscular Volume 92.2 fL (81-99); Mean Platelet Vol. 9.5 fl (6.2-12.0); Monocyte# 0.62 X10^3/uL; Monocyte% 5.8 % (0-10); NRBC Flagged by Analyzer 0 % (0-5); Neutrophil # 6.89 X10^3/uL (2.7-7.7); Neutrophil % 63.9 % (47-70); Platelet Count 386 K/mm3 (150-450); RBC Distribution Width CV 12.6 % (11.6-14.6); RBC Distribution Width SD 42.5 fl (35.1-43.9); Red Blood Count 5.12 M/mm3 (4.2-5.4); White Blood Count 10.8 K/mm3 (4.4-11.0)
[2022-01-10 16:37] LABS: Internal QC Validated? YES +Cl - CLEAR BKGD; Pregnancy, Serum, hCG Quali. NEGATIVE Negative
[2022-01-10 16:47] LABS: ALB/GLOB Ratio 0.9 RATIO (0.9-2.4); AST(SGOT) 26 U/L (15-37); Alanine Aminotransfer ALT/SGPT 44 U/L (13-56); Albumin, Serum 3.8 g/dL (3.2-5.0); Alkaline Phosphatase 84 U/L (45-117); Anion Gap 5 (5-15); BUN 6 mg/dL (7-18); BUN/Creat Ratio 7.7 RATIO (10-20); Calcium,Total 9.5 mg/dL (8.5-10.1); Chloride 106 mmol/L (98-107); Creatinine, Serum 0.78 mg/dL (0.55-1.02); EST Glomerular Filtration Rate 90 mL/min (>60); Est Glom Filt Rate - Afr Amer 108 mL/min (>60); Estimated Creatinine Clearance 88.59 ml/min; Globulin 4.3 g/dL (2.2-4.2); Glucose 114 mg/dL (74-106); Lipase 55 U/L (73-393); Potassium 4.4 mmol/L (3.5-5.1); Protein, Total 8.1 g/dL (6.4-8.2); Sodium Level 137 mmol/L (136-145); Troponin-I HS 27 pg/mL (3.0-54.0)
[2022-01-10 17:42] VITALS: BP 118/87; PULSE 78; RESP 20; O2SAT 98
== END 2022-01-10 18:21 | disposition home or self-care (01) ==
PROVIDERS: Emergency Provider Emergency Medicine; PCP Internal Medicine; Visit Provider Emergency Medicine
DX: G89.18 Other acute postprocedural pain (principal); R07.9 Chest pain, unspecified; R10.9 Unspecified abdominal pain; Z90.49 Acquired absence of other specified parts of digestive tract; M79.7 Fibromyalgia; J45.909 Unspecified asthma, uncomplicated; E06.3 Autoimmune thyroiditis; Z79.890 Hormone replacement therapy
CPT/HCPCS: 71260; 74177; 80053; 83690; 84484; 84703; 85025; 93005; 96361; 96374; 96375; 96376; 99284; J7030; Q9967; A4216; J2405

== ENCOUNTER 2022-03-11 11:01 | Emergency (ER) | payer MEDICAID, SELFPAY ==
[2022-03-11 11:03] VITALS: BP 151/110; PULSE 82; RESP 16; TEMP 36.2; O2SAT 96; BMI 37.4
--- NOTE | 2022-03-11 11:43 | CT_ITS ---
STUDY: CT ABDOMEN AND PELVIS WITH CONTRAST REASON FOR EXAM: Female, 32 years old. RUQ pain, nausea, recent cholecystectomy RADIATION DOSAGE (If Supplied By Facility): CTDIvol = ( 16.00 ) mGy, DLP = ( 1142.16 ) mGycm TECHNIQUE: Transaxial images were obtained from the dome of the diaphragm to the symphysis pubis without oral contrast. IV 100mL Isovue-300 was administered. Sagittal and coronal images were reconstructed. Individualized dose optimization techniques were used for this CT. COMPARISON: Comparison is made with prior study 08/09/2021. FINDINGS: The visualized lung bases are unremarkable. The visualized portions of the heart are within normal limits. There is decreased attenuation of the liver consistent with steatosis. The patient is status post cholecystectomy. Normal spleen. Normal pancreas. There is a small, circumscribed, smooth, low attenuation left adrenal mass, consistent with an adrenal adenoma. This measures 1.7 cm. Normal right adrenal gland. Normal right kidney. Normal left kidney. Normal visualized stomach. Normal small intestine. Normal colon. The appendix is visualized and appears normal. Normal abdominal aorta. Normal inferior vena cava. Normal retroperitoneum. Normal urinary bladder. Normal abdominal wall. Normal osseous structures. CT/Abdomen/Pelvis W IV Cont ONLY IMPRESSION: Diffuse fatty infiltration of the liver. Electronically Signed: Óscar Briones MD at 13:30 EDT ,
--- NOTE | 2022-03-11 11:47 | ED.VIS.GI ---
HPI HPI - GI History of Present Illness Chief Complaint: Abd Pain Abdominal Pain/Flank Pain Onset: Month(s) (2) Context: - (Since surgery, progressively worsening) Timing: Continuous Quality: Sharp Location: RUQ Current Severity: Severe Maximum Severity: Severe Worsened by: Movement; Not Worsened By Food Relieved by: Remaining Still Nausea/Vomiting/Emesis GI Symptom: Positive for Nausea; Negative for Vomiting Diarrhea/Melena/Hematochezia GI Symptom: Negative for Diarrhea, Melena and Hematochezia Narrative Narrative: Progressively worsening lateral right upper quadrant pain since her cholecystectomy on 01/05. She states when she moves it gets worse and feels like it is sharp like there is glass on the inside. Nausea without vomiting. Normal bowel movements without blood or melena. Normal urination. She did have a fever couple weeks ago but none since. PFSH PFS Medical History Asthma Fibromyalgia Dominick's thyroiditis Home Medications levothyroxine 200 mcg PO DAILY 12/10/20 [History Last Taken Unknown] ibuprofen 600 mg PO 4X/DAY PRN #20 tab 01/10/22 [Rx Last Taken Unknown] albuterol sulfate 2.5 mg INHALATION PRN PRN 03/11/22 [History Last Taken Unknown] dicyclomine 20 mg PO Q8H PRN PRN #20 capsule 03/11/22 [Rx Last Taken Unknown] tramadol 50 mg PO Q6H PRN 3 Days #12 tab 03/11/22 [Rx Last Taken Unknown] Allergy/AdvReac Type Severity Reaction Status Date / Time amoxicillin Allergy Hives Verified 03/11/22 11:05 clindamycin Allergy Hives Verified 03/11/22 11:05 oxycodone Allergy Chest Verified 03/11/22 11:05 tightness Penicillins [PCN] Allergy Hives Verified 03/11/22 11:05 trazodone Allergy Angioedema Verified 03/11/22 11:05 Surgical History (Updated 01/18/22 @ 02:22 by Nimo Magana) H/O total thyroidectomy Hx of cholecystectomy Social History household members: none Smoking Status: Never smoker alcohol intake: current alcohol intake frequency: holidays/special occasions only substance use type: does not use ROS ROS ED Constitutional Constitutional ED: Denies chills or fever(s) Eyes Eyes: Denies change in vision or diplopia ENT ENT ED: Denies rhinorrhea or sore throat Cardiovascular Cardiovascular: Denies chest pain or palpitations Respiratory/Chest Respiratory/Chest: Denies cough or dyspnea Gastrointestinal Gastrointestinal: Reports as per HPI, abdominal pain and nausea; Denies diarrhea or vomiting Genitourinary Genitourinary ED: Denies dysuria or hematuria Musculoskeletal Musculoskeletal: Denies back pain or neck pain Integumentary Denies abscess or rash Neurologic Neurologic: Denies headache(s), paresthesias or weakness Psychiatric Psychiatric: Denies anxiety or suicidal thoughts EXAM Physical Exam Const Vital Signs: 03/11/22 11:03 Temperature 97.1 F L Temperature Source Temporal Pulse Rate 82 Respiratory Rate 16 Blood Pressure 151/110 H Blood Pressure Mean 123 Pulse Ox 96 Oxygen Delivery Method Room Air Positive well nourished, well developed and obese General Appearance ED: well developed and NAD Nutritional Appearance: obese HEENT Reports moist mucous membranes normocephalic and atraumatic Eyes PERRL and EOMs intact bilaterally Neck full ROM and supple Resp normal respiratory effort and clear to auscultation bilaterally Effort and Inspection: able to speak in complete sentences Cardio regular rate, regular rhythm and no murmurs GI non-distended GI Narrative: Tender lateral aspect of the right upper quadrant. Normal on inspection. No palpable mass. No guarding or rebound. The rest of her abdomen is benign. Auscultation: normoactive bowel sounds Palpation: soft Back/Spine no CVA tenderness General Back: other FROM Extremity normal to inspection General Extremety ED: Negative for edema, pulses abnormal or tenderness General Extremity: Negative for edema or pulses abnormal Neuro oriented x3, CN's II-XII intact bilaterally and no sensory deficits noted Sensorium / Orientation: awake and alert Motor Exam: strength 5/5 throughout Skin no rashes or lesions noted and no wounds MDM MDM MDM Narrative Medical decision making narrative: Work-up is completely normal including CT of the abdomen/pelvis with IV contrast. I do not have a great explanation for this patient's right upper quadrant pain since surgery. Possibly could be functional GI, possible it could be simply musculoskeletal discomfort related to her fibromyalgia, possible it could be related to right upper quadrant scar tissue that is not causing an obstruction or seen on CT. Regardless supportive care is advised, I will prescribe her dicyclomine, some tramadol since she is almost out of her prior prescription that she has been using sparingly, and recommend follow-up with her surgeon and/or PCP she is comfortable with that plan. Lab Data Attestation: I reviewed the patient's lab results. Labs: Laboratory Results - last 24 hr 03/11/22 03/11/22 03/11/22 12:00 12:00 12:00 WBC 9.6 RBC 4.77 Hgb 14.8 Hct 44.4 MCV 93.1 MCH 31.0 MCHC 33.3 RDW Std Deviation 43.1 RDW Coeff of Hi 12.5 Plt Count 368 MPV 9.7 Immature Gran % (Auto) 0.300 Neut % (Auto) 53.4 Lymph % (Auto) 35.5 [place] % (Auto) 7.3 Eos % (Auto) 3.1 Baso % (Auto) 0.4 Absolute Neuts (auto) 5.1 Absolute Lymphs (auto) 3.42 Nucleated RBC % 0 Sodium 138 Potassium 3.7 Chloride 105 Carbon Dioxide 29.0 Anion Gap 4 L BUN 7 Creatinine 0.67 Estim Creat Clear Calc 102.17 Est GFR (MDRD) Af Amer 130 Est GFR (MDRD) Non-Af 107 BUN/Creatinine Ratio 10.5 Glucose 119 H Calcium 8.8 Total Bilirubin 0.20 AST 26 ALT 44 Alkaline Phosphatase 83 Total Protein 7.7 Albumin 3.6 Globulin 4.1 Albumin/Globulin Ratio 0.9 Lipase 69 L Serum , Qual NEGATIVE Urine Color Urine Clarity Urine pH Ur Specific [place] Urine Protein Urine Glucose (UA) Urine Ketones Urine Occult Blood Urine Nitrite Urine Bilirubin Urine Urobilinogen Ur Leukocyte Esterase Urine RBC Urine WBC Ur Squamous Epith Cells Urine Bacteria Urine Mucus 03/11/22 12:05 WBC RBC Hgb Hct MCV MCH MCHC RDW Std Deviation RDW Coeff of Hi Plt Count MPV Immature Gran % (Auto) Neut % (Auto) Lymph % (Auto) [place] % (Auto) Eos % (Auto) Baso % (Auto) Absolute Neuts (auto) Absolute Lymphs (auto) Nucleated RBC % Sodium Potassium Chloride Carbon Dioxide Anion Gap BUN Creatinine Estim Creat Clear Calc Est GFR (MDRD) Af Amer Est GFR (MDRD) Non-Af BUN/Creatinine Ratio Glucose Calcium Total Bilirubin AST ALT Alkaline Phosphatase Total Protein Albumin Globulin Albumin/Globulin Ratio Lipase Serum , Qual Urine Color Yellow Urine Clarity Sl. Cloudy Urine pH 6.0 Ur Specific [place] 1.025 Urine Protein 15 H Urine Glucose (UA) Normal Urine Ketones 5 H Urine Occult Blood 25 H Urine Nitrite Negative Urine Bilirubin Negative Urine Urobilinogen Normal Ur Leukocyte Esterase 25 H Urine RBC 0 SEEN Urine WBC 0-5 SEEN Ur Squamous Epith Cells 0-5 SEEN Urine Bacteria 0 SEEN Urine Mucus 0 SEEN Radiography Diagnostic Testing: Clinical Impression(s) from Imaging Studies Abdomen/Pelvis CT 03/11/22 11:43 IMPRESSION: Diffuse fatty infiltration of the liver. Electronically Signed: Óscar Briones MD at 13:30 EDT , Discharge Plan Triage Chief Complaint: Abd Pain ED Provider: Jareth Brito Dx/Rx/DC Orders Clinical Impression: Abdominal pain, RUQ Instructions: Abdominal Pain Prescriptions: New dicyclomine 10 MG capsule 20 mg PO Q8H PRN PRN (Reason: abdominal discomfort) Qty: 20 RF: 0 tramadol 50 MG tablet 50 mg PO Q6H PRN (Reason: pain) 3 Days Qty: 12 RF: 0 No Action levothyroxine 200 MCG tablet 200 mcg PO DAILY RF: 0 ibuprofen 600 MG tablet 600 mg PO 4X/DAY PRN (Reason: Pain Or Fever) Qty: 20 RF: 0 albuterol sulfate 2.5 mg /3 mL (0.083 %) solution for nebulization 2.5 mg inhalation PRN PRN (Reason: SOB) RF: 0 Primary Care Provider: Roxanna Bee NP Referrals: Onur Encinas MD [STAFF PHYSICIAN] - (call for follow-up appt) Roxanna Bee NP, DIRECTOR OF EDUCATION AND TRAINING-C [Primary Care Provider] - As soon as possible Disposition Disposition: Home, Self Care
[2022-03-11] MEDS: 0.9% Normal Saline 1,000 ML 1000 ML IV (12:02)
[2022-03-11] MEDS: Ketorolac 15 MG/ML Vial IV (12:03)
[2022-03-11] MEDS: Ondansetron 4 MG/2 ML Vial IV (12:03)
[2022-03-11 12:18] LABS: Bacteria 0 SEEN /hpf (None Seen); Mucous, Urine 0 SEEN /hpf (<or=2+); Red Blood Cells-Urine 0 SEEN /hpf (0-5)
[2022-03-11 12:30] LABS: Absolute Lymphocyte Count 3.42 X10^3/uL (0.83-4.51); Absolute Neutrophil Count 5.1 X10^3/uL (2.0-7.7); Basophil# 0.04 X10^3/uL; Basophil% 0.4 % (0-1); Eosinophils% 3.1 % (0-5); Hematocrit 44.4 % (37-47); Hemoglobin 14.8 g/dL (12.0-15.0); Lymphocyte # 3.42 X10^3/ul (0.83-4.51); Lymphocyte % 35.5 % (19-41); Mean Corp Hgb Conc 33.3 g/dL (32-36); Mean Corpuscular Volume 93.1 fL (81-99); Mean Platelet Vol. 9.7 fl (6.2-12.0); Monocyte% 7.3 % (0-10); NRBC Flagged by Analyzer 0 % (0-5); Neutrophil # 5.14 X10^3/uL (2.7-7.7); Neutrophil % 53.4 % (47-70); Platelet Count 368 K/mm3 (150-450); RBC Distribution Width CV 12.5 % (11.6-14.6); RBC Distribution Width SD 43.1 fl (35.1-43.9); Red Blood Count 4.77 M/mm3 (4.2-5.4); White Blood Count 9.6 K/mm3 (4.4-11.0)
[2022-03-11 12:32] LABS: Color, Urine Yellow (Yellow); Glucose, Dipstick Normal (Normal); Ketone-Dipstick 5 mg/dl (Negative); Leukocyte Esterase-Dipstick 25 /ul (Negative); Nitrite-Dipstick Negative (Negative); Occult Blood-Urine 25 /ul (Negative); Protein-Dipstick 15 mg/dl (Negative); Specific Gravity, Urine 1.025 (1.002-1.030); Urine Bilirubin Dipstick Negative (Negative); Urine Clarity Sl. Cloudy (Clear); Urine Urobilinogen Normal (Normal)
[2022-03-11 12:38] LABS: Internal QC Validated? YES +Cl - CLEAR BKGD; Pregnancy, Serum, hCG Quali. NEGATIVE Negative
[2022-03-11 12:43] LABS: ALB/GLOB Ratio 0.9 RATIO (0.9-2.4); AST(SGOT) 26 U/L (15-37); Alanine Aminotransfer ALT/SGPT 44 U/L (13-56); Albumin, Serum 3.6 g/dL (3.2-5.0); Alkaline Phosphatase 83 U/L (45-117); Anion Gap 4 (5-15); BUN 7 mg/dL (7-18); BUN/Creat Ratio 10.5 RATIO (10-20); Calcium,Total 8.8 mg/dL (8.5-10.1); Chloride 105 mmol/L (98-107); Creatinine, Serum 0.67 mg/dL (0.55-1.02); EST Glomerular Filtration Rate 107 mL/min (>60); Est Glom Filt Rate - Afr Amer 130 mL/min (>60); Estimated Creatinine Clearance 102.17 ml/min; Globulin 4.1 g/dL (2.2-4.2); Glucose 119 mg/dL (74-106); Lipase 69 U/L (73-393); Potassium 3.7 mmol/L (3.5-5.1); Protein, Total 7.7 g/dL (6.4-8.2); Sodium Level 138 mmol/L (136-145)
[2022-03-11 12:46] LABS: Squamous Epithelial Cells - UA 0-5 SEEN /hpf (5-10); White Blood Cells 0-5 SEEN /hpf (0-5)
[2022-03-11 15:21] VITALS: BP 148/97; PULSE 81; RESP 16; O2SAT 97
== END 2022-03-11 15:22 | disposition home or self-care (01) ==
PROVIDERS: Emergency Provider Emergency Medicine; PCP Nurse Practitioner Family; Visit Provider Emergency Medicine
DX: R10.11 Right upper quadrant pain (principal); R11.0 Nausea; M79.7 Fibromyalgia; Z79.899 Other long term (current) drug therapy
CPT/HCPCS: 74177; 80053; 81001; 83690; 84703; 85025; 96361; 96374; 96375; 99282; J7030; A4216; J2405